=== PATIENT | male | born 1960 | race Caucasian/White ===

== ENCOUNTER → 2019-09-12 10:39 | Outpatient (BNVA) | payer SELFPAY | PROVIDERS: Family Provider Nurse Practitioner; PCP Nurse Practitioner; Visit Provider Nurse Practitioner | DX: E11.65 Type 2 diabetes mellitus with hyperglycemia (principal); I10 Essential (primary) hypertension; K21.9 Gastro-esophageal reflux disease without esophagitis | CPT/HCPCS: 80053; 80061; 81003; 82044; 83036 ==

== ENCOUNTER → 2020-02-09 11:47 | Outpatient (BNVA) | payer SELFPAY | PROVIDERS: Family Provider Nurse Practitioner; PCP Nurse Practitioner; Visit Provider Family Medicine | DX: E11.65 Type 2 diabetes mellitus with hyperglycemia (principal); M54.9 Dorsalgia, unspecified; G89.29 Other chronic pain; I10 Essential (primary) hypertension | CPT/HCPCS: 80053; 80061; 83036 ==

== ENCOUNTER → 2020-06-01 12:01 | Outpatient (BNVA) | payer SELFPAY | PROVIDERS: Family Provider Nurse Practitioner; PCP Nurse Practitioner; Visit Provider Family Medicine | DX: I10 Essential (primary) hypertension (principal); E11.65 Type 2 diabetes mellitus with hyperglycemia; F41.9 Anxiety disorder, unspecified; K21.9 Gastro-esophageal reflux disease without esophagitis; M54.9 Dorsalgia, unspecified; G89.29 Other chronic pain | CPT/HCPCS: 80053; 80061; 83036; 85025 ==

== ENCOUNTER → 2020-11-27 12:57 | Outpatient (BNVA) | payer MEDICARE, SELFPAY | PROVIDERS: Family Provider Nurse Practitioner; PCP Nurse Practitioner; Visit Provider Family Medicine | DX: F41.9 Anxiety disorder, unspecified (principal); K21.9 Gastro-esophageal reflux disease without esophagitis; E11.65 Type 2 diabetes mellitus with hyperglycemia; I10 Essential (primary) hypertension | CPT/HCPCS: 80053; 80061; 83036; 84443; 85025 ==

== ENCOUNTER → 2021-04-26 09:42 | Outpatient (BNVA) | payer MEDICARE, SELFPAY | PROVIDERS: Family Provider Nurse Practitioner; PCP Nurse Practitioner; Visit Provider Family Medicine | DX: E11.65 Type 2 diabetes mellitus with hyperglycemia (principal); I10 Essential (primary) hypertension; F41.9 Anxiety disorder, unspecified | CPT/HCPCS: 80053; 80061; 83036; 84443; 85025 ==

== ENCOUNTER → 2022-03-11 17:00 | Outpatient (BNVA) | payer MEDICARE, SELFPAY | PROVIDERS: Family Provider Nurse Practitioner; PCP Nurse Practitioner; Visit Provider Family Medicine | DX: L98.9 Disorder of the skin and subcutaneous tissue, unspecified (principal); G47.30 Sleep apnea, unspecified; E11.65 Type 2 diabetes mellitus with hyperglycemia; I10 Essential (primary) hypertension; K21.9 Gastro-esophageal reflux disease without esophagitis; F41.9 Anxiety disorder, unspecified; Z12.5 Encounter for screening for malignant neoplasm of prostate | CPT/HCPCS: 80053; 80061; 83036; 84443; 85025; G0103 ==

== ENCOUNTER → 2022-03-21 09:55 | Outpatient (BNVA) | payer MEDICARE, SELFPAY | PROVIDERS: Family Provider Nurse Practitioner; PCP Nurse Practitioner; Visit Provider Family Medicine | DX: R74.8 Abnormal levels of other serum enzymes (principal); R79.89 Other specified abnormal findings of blood chemistry; R94.6 Abnormal results of thyroid function studies; E03.8 Other specified hypothyroidism | CPT/HCPCS: 80076; 84439; 84443; 84481 ==

== ENCOUNTER → 2022-03-27 09:46 | Outpatient (BNVA) | payer MEDICARE, SELFPAY | PROVIDERS: Family Provider Nurse Practitioner; PCP Nurse Practitioner; Visit Provider Family Medicine | DX: R74.8 Abnormal levels of other serum enzymes (principal) | CPT/HCPCS: 86705; 86706; 86709; 86803; 87340 ==

== ENCOUNTER 2022-05-19 09:34 | Outpatient (CLI) | payer MEDICARE, SELFPAY ==
--- NOTE | 2022-05-19 | US_ITS ---
WS: [id number] RIGHT UPPER QUADRANT ULTRASOUND HISTORY: ELEVATED LFT's COMPARISON: None available. Liver: 15.2 cm in length. Normal size liver. Coarsened echotexture. Surface of the liver is very slig htly irregular. No mass or bile duct dilatation. Portal Vein: Normal hepatopetal flow with monophasic waveform. Gallbladder: Normally distended gallbladder. Nonshadowing, nonmobile soft tissue focus within the gal lbladder measures 5.7 mm. CBD: 0.3 cm Pancreas: Very difficult to visualize due to body habitus. Head and tail are obscured. Body is negati ve. Right kidney: 10.4 cm in length. Normal size and echogenicity. No hydronephrosis or mass. Aorta and IVC: Unremarkable abdominal aorta and IVC. No ascites. US/US liver [id number] IMPRESSION: 1. No cholelithiasis. 2. Gallbladder polyp. 3. Mild hepatic steatosis versus cirrhosis.
== END 2022-05-19 09:35 | disposition home or self-care (01) ==
PROVIDERS: PCP Family Medicine; Visit Provider Family Medicine
DX: R94.5 Abnormal results of liver function studies (principal); K82.4 Cholesterolosis of gallbladder
CPT/HCPCS: 76705

== ENCOUNTER → 2022-08-19 08:36 | Outpatient (BNVA) | payer MEDICARE, SELFPAY | PROVIDERS: PCP Family Medicine; Visit Provider Surgery | DX: K82.4 Cholesterolosis of gallbladder (principal) | CPT/HCPCS: 99203 ==

== ENCOUNTER → 2022-10-21 12:04 | Outpatient (BNVA) | payer MEDICARE, SELFPAY | PROVIDERS: PCP Family Medicine; Visit Provider Family Medicine | DX: E11.65 Type 2 diabetes mellitus with hyperglycemia (principal); I10 Essential (primary) hypertension; K21.9 Gastro-esophageal reflux disease without esophagitis; F41.9 Anxiety disorder, unspecified; Z12.5 Encounter for screening for malignant neoplasm of prostate; G47.30 Sleep apnea, unspecified | CPT/HCPCS: 80053; 80061; 83036; 84443; G0103 ==

== ENCOUNTER → 2023-04-27 11:54 | Outpatient (BNVA) | payer MEDICARE, SELFPAY | PROVIDERS: PCP Family Medicine; Visit Provider Family Medicine | DX: K82.4 Cholesterolosis of gallbladder (principal); F41.9 Anxiety disorder, unspecified; I10 Essential (primary) hypertension; K21.9 Gastro-esophageal reflux disease without esophagitis; E11.65 Type 2 diabetes mellitus with hyperglycemia; M25.561 Pain in right knee | CPT/HCPCS: 80053; 80061; 83036; 84443; 85025 ==

== ENCOUNTER 2023-05-18 07:47 | Outpatient (CLI) | payer MEDICARE, SELFPAY ==
--- NOTE | 2023-05-18 08:15 | US_ITS ---
WS: [id number] ULTRASOUND ABDOMEN LIMITED CLINICAL INFORMATION: K82.4 - Cholesterolosis of gallbladder COMPARISON: 2021 FINDINGS: Liver Size: Mild hepatomegaly Craniocaudal length: 15.8 cm. Echogenicity: Coarse surface nodularity: None. Mass (size and location): None. Bile ducts Intrahepatic ducts: Normal. Common bile duct diameter: 0.3 cm. Gallbladder Gallbladder polyp measuring 11 x 8.5 x 4.3 mm Gallstones: None. Gallbladder sludge: None. Gallbladder wall thickening: None. Pericholecystic fluid: None. Sonographic Medina sign: Absent. Pancreas Not well visualized Right kidney: Normal. Hydronephrosis: None. Size: 10.3 cm x 5.1 cm x 4.9 cm. Abdominal aorta and IVC Visualized portions are normal. Ascites: None. IMPRESSION: 1. Mild hepatomegaly with coarse hepatic echogenicity. 2. Gallbladder polyp measuring 11 x 8.5 x 4.3 mm appears slightly more prominent and better visualiz ed today. 3. No gallbladder wall thickening pericholecystic fluid. 4. Normal common bile duct. 5. No hydronephrosis in the RIGHT kidney.
== END 2023-05-18 07:48 | disposition home or self-care (01) ==
PROVIDERS: PCP Family Medicine; Visit Provider Family Medicine
DX: K82.4 Cholesterolosis of gallbladder (principal); R16.0 Hepatomegaly, not elsewhere classified
CPT/HCPCS: 76705

== ENCOUNTER → 2023-09-10 12:27 | Outpatient (BNVA) | payer MEDICARE, SELFPAY | PROVIDERS: PCP Family Medicine; Referring Provider Family Medicine; Visit Provider Surgery | DX: K82.4 Cholesterolosis of gallbladder (principal); K21.9 Gastro-esophageal reflux disease without esophagitis | CPT/HCPCS: 99214 ==

== ENCOUNTER 2023-09-30 10:52 | Day surgery (SDC) | payer MEDICARE, SELFPAY ==
--- NOTE | 2023-09-30 11:32 | ANES.PREANE2 ---
Pre-Anesthetic Assessment Height/Weight: Height 1.8 m Preop Diagnosis: gerd Operation Date: 09/30/23 12:00 Proposed Procedures p 33975 egd K21.9(Not Applicable) - Kalin Nunn DO Familial anesthetic complications: None Was Beta Herbert taken within 24 hours: Yes Was Clonidine taken within 24 hours: N/A Social occasional THC use and alcohol Exam alert, oriented x 3 and regular rate & rhythm Airway Mallampati: Class II Dentition: chipped History/ROS No significant history except as noted Pulmonary None reported CV/HEM Hypertension None reported Hepatic fatty liver GI Gastroesophageal Reflux Disease Metabolic Diabetes Mellitus [facility] Lower Back Pain Neuropsych Anxiety Anesthetic Plan ASA status: 3 Anesthesia: Anesthesia Evaluation and MAC Risk of > 500 ml blood loss (7ml/kg in children): No Medications/Allergies Home Medications Medication Instructions Recorded Confirmed Last Taken Type Face mask and hose for sleep apnea #1 ea 03/11/22 09/28/23 09/28/23 Rx machine knee brace #1 ea 04/27/23 09/28/23 09/28/23 Rx pantoprazole 40 mg tablet,delayed 40 mg PO BID 6 weeks #84 tabs 09/10/23 09/30/23 09/29/23 Rx release (Protonix) amlodipine 10 mg tablet 10 mg PO BEDTIME 09/28/23 09/30/23 09/29/23 History clonazepam 1 mg tablet 1 mg PO BID PRN anxiety 09/28/23 09/30/23 09/29/23 History propranolol 80 mg capsule,24 80 mg PO BEDTIME 09/28/23 09/30/23 09/29/23 History hr,extended release sitagliptin phosphate 100 mg 100 mg PO BEDTIME 09/28/23 09/30/23 09/29/23 History tablet (Januvia) Allergies Allergy/AdvReac Type Severity Reaction Status Date / Time aspirin [From Norgesic] AdvReac Nausea Verified 09/30/23 11:31 caffeine [From Norgesic] AdvReac Nausea Verified 09/30/23 11:31 orphenadrine [From Norgesic] AdvReac Nausea Verified 09/30/23 11:31 piroxicam [From Feldene] AdvReac Nausea Verified 09/30/23 11:31 [facility] Anesthesia Medical History (Updated 09/10/23 @ 13:41 by Kalin Nunn DO) Acid reflux Controlled diabetes mellitus with hyperglycemia Hypertension Surgical History Hx of colonoscopy (~03/24/18) Hx of umbilical hernia repair (~03/26/18) Hx of appendectomy (~1970) Family History Mother Hypertension Diabetes Father Hypertension Heart disease Denies family history of Clotting disorder Social History Smoking and tobacco/nicotine status: never used tobacco/nicotine Alcohol intake: never Adopted: No Lives independently: Yes Household members: none Housing: House Marital status: Number of children: 2 Number of grandchildren: 2 Highest education level completed: High School Graduate service: No Current occupational status: retired Current gender identity: Male Data Anesthesia Cardiac Studies: No Data to Display
[2023-09-30] MEDS: sodium chloride 0.9% 1,000 ML 30 ML IV (11:34)
[2023-09-30 11:36] VITALS: BP 152/103; PULSE 66; RESP 16; TEMP 36.6; O2SAT 97; BMI 25.7
[2023-09-30] MEDS: midazolam 1 mg/mL INJ 2 mL 2 MG IVP (11:48)
[2023-09-30 11:53] LABS: Glucose Point of Care 111 mg/dL (70-110)
--- NOTE | 2023-09-30 12:19 | W.PM.OPSUD ---
Surgery/Procedure H&P Update DATE OF PROCEDURE: September 30, 2023 DATE H&P PERFORMED: 09/10/23 H&P UPDATE INFORMATION: I have reviewed H&P completed within last 30 days, I have examined patient prior to procedure and No changes to prior documentation PREOP DIAGNOSIS: gerd PLANNED PROCEDURE: Operation Date: 09/30/23 12:00 Proposed Procedures p [id number] egd K21.9(Not Applicable) - Kalin Nunn, DO
[2023-09-30 12:30] VITALS: BP 132/81; PULSE 75; RESP 18; TEMP 36.6; O2SAT 95
[2023-09-30 12:45] VITALS: BP 136/86; PULSE 69; RESP 18; O2SAT 95
--- NOTE | 2023-09-30 15:27 | ANE.PACU2 ---
Inpatient post-anesthesia follow up: Airway intact: Yes Vital signs: Temperature 97.9 F Pulse Rate 69 Respiratory Rate 18 Blood Pressure 136/86 Pulse Oximetry 95 Oxygen Delivery Me thod Room Air Oxygen Flow Rate 2 Fraction of Inspir ed Oxygen Hydration adequate: Yes Nausea and vomiting: No Pain level: 2 Mental status: Baseline
== END 2023-09-30 12:57 | disposition home or self-care (01) ==
PROVIDERS: PCP Family Medicine; Visit Provider Surgery
PROC: 0DJ08ZZ Inspection of Upper Intestinal Tract, Via Natural or Artificial Opening Endoscopic (ICD-10-PCS; CPT 43235; principal; 2023-09-30 12:00)
DX: K21.9 Gastro-esophageal reflux disease without esophagitis (principal); K29.50 Unspecified chronic gastritis without bleeding; I10 Essential (primary) hypertension; F41.9 Anxiety disorder, unspecified; E11.65 Type 2 diabetes mellitus with hyperglycemia
CPT/HCPCS: 36416; 43239; 82962; 88305; 88342; 96374; J2250; J2704; J7030

== ENCOUNTER → 2023-10-13 05:35 | Day surgery (SDC) | payer MEDICARE, SELFPAY ==
[2023-10-13] VITALS (11 sets, daily range): BP systolic 124–157; BP diastolic 84–98; PULSE 61–74; RESP 16–18; TEMP 36.3–36.7; O2SAT 94–97; BMI 25.7
[2023-10-13] MEDS: sodium chloride 0.9% 1,000 ML 30 ML IV (06:34)
[2023-10-13] MEDS: midazolam 1 mg/mL INJ 2 mL 2 MG IVP (06:43)
--- NOTE | 2023-10-13 06:46 | ANES.PREANE2 ---
Pre-Anesthetic Assessment Height/Weight: Height 1.8 m Weight 83.461 kg Temp Pulse Resp BP Pulse Ox O2 Del Method 97.5 F L 61 17 124/84 97 Room Air 10/13/23 06:01 10/13/23 06:01 10/13/23 06:01 10/13/23 06:01 10/13/23 06:01 10/13/23 06:06 Operation Date: 10/13/23 07:00 Proposed Procedures p [id number] lap reji K82.4(Not Applicable) - Kalin Nunn DO Familial anesthetic complications: None Was Beta Herbert taken within 24 hours: Yes Was Clonidine taken within 24 hours: N/A Last intake: Intake Last Liquid Date 10/13/23 Last Liquid Time 12:22 Last Solid Date 10/12/23 Last Solid Time 11:30 Social No alcohol and No tobacco Exam alert, oriented x 3, clear to auscultation bilaterally and regular rate & rhythm Airway Mallampati: Class II Dentition: chipped CV/HEM Hypertension GI Gastroesophageal Reflux Disease Metabolic Diabetes Mellitus Neuropsych Headache (migraines with aura including blurred vision and numbness, son present states this is normal for patient and that he also has these same migraines ( it runs in our family )) Anesthetic Plan ASA status: 3 Anesthesia: General Risk of > 500 ml blood loss (7ml/kg in children): No Medications/Allergies Home Medications Medication Instructions Recorded Confirmed Last Taken Type Face mask and hose for sleep apnea #1 ea 03/11/22 09/28/23 09/28/23 Rx machine knee brace #1 ea 04/27/23 09/28/23 09/28/23 Rx pantoprazole 40 mg tablet,delayed 40 mg PO BID 6 weeks #84 tabs 09/10/23 10/12/23 10/12/23 Rx release (Protonix) amlodipine 10 mg tablet 10 mg PO BEDTIME 09/28/23 10/12/23 10/12/23 History propranolol 80 mg capsule,24 80 mg PO BEDTIME 09/28/23 10/12/23 10/12/23 History hr,extended release sitagliptin phosphate 100 mg 100 mg PO BEDTIME 09/28/23 10/12/23 10/11/23 History tablet (Januvia) clonazepam 1 mg tablet 1 mg PO BID PRN anxiety #60 tabs 10/06/23 10/12/23 10/13/23 Rx Allergies Allergy/AdvReac Type Severity Reaction Status Date / Time aspirin [From Norgesic] AdvReac Nausea Verified 09/30/23 11:31 caffeine [From Norgesic] AdvReac Nausea Verified 09/30/23 11:31 orphenadrine [From Norgesic] AdvReac Nausea Verified 09/30/23 11:31 piroxicam [From Feldene] AdvReac Nausea Verified 09/30/23 11:31 Current Medications Generic Name Dose Route Start Last Admin Trade Name Freq PRN Reason Stop Dose Admin Sodium Chloride 1,000 mls @ 30 mls/hr 10/13/23 06:00 10/13/23 06:34 Sodium Chloride 0.9% IV 10/14/23 05:59 30 mls/hr .Q24H MONICA Administration Midazolam HCl 2 mg 10/13/23 05:50 10/13/23 06:43 Midazolam 1 Mg/Ml Inj 2 Ml IVP 2 mg Q5M PRN Administration Preop Anxiety PFSH Anesthesia Medical History (Updated 09/10/23 @ 13:41 by Kalin Nunn DO) Acid reflux Controlled diabetes mellitus with hyperglycemia Hypertension Surgical History Hx of colonoscopy (~03/24/18) Hx of umbilical hernia repair (~03/26/18) Hx of appendectomy (~1970) Family History Mother Hypertension Diabetes Father Hypertension Heart disease Denies family history of Clotting disorder Social History Smoking and tobacco/nicotine status: never used tobacco/nicotine Alcohol intake: never Adopted: No Lives independently: Yes Household members: none Housing: House Marital status: Number of children: 2 Number of grandchildren: 2 Highest education level completed: High School Graduate service: No Current occupational status: retired Current gender identity: Male Data Anesthesia Cardiac Studies: No Data to Display
[2023-10-13] MEDS: ceFAZolin 2,000 MG in sodium chloride 0.9% (plus) 50 ML 100 MG IV (06:59)
--- NOTE | 2023-10-13 06:59 | P.HP_ITS ---
Providers/Chief Complaint Primary Care Provider: Amy Sanz MD Chief Complaint: K82.4 History of Present Illness Marysol Heller is a 63 year old male Review of Systems General: Reports: 10 or more systems reviewed and unremarkable except in HPI and below Medications/Allergies Home Medications Medication Instructions Recorded Confirmed Last Taken Type Face mask and hose for sleep apnea #1 ea 03/11/22 09/28/23 09/28/23 Rx machine knee brace #1 ea 04/27/23 09/28/23 09/28/23 Rx pantoprazole 40 mg tablet,delayed 40 mg PO BID 6 weeks #84 tabs 09/10/23 10/12/23 10/12/23 Rx release (Protonix) amlodipine 10 mg tablet 10 mg PO BEDTIME 09/28/23 10/12/23 10/12/23 History propranolol 80 mg capsule,24 80 mg PO BEDTIME 09/28/23 10/12/23 10/12/23 History hr,extended release sitagliptin phosphate 100 mg 100 mg PO BEDTIME 09/28/23 10/12/23 10/11/23 Hist ory tablet (Januvia) clonazepam 1 mg tablet 1 mg PO BID PRN anxiety #60 tabs 10/06/23 10/12/23 10/13/23 Rx Allergies Allergy/AdvReac Type Severity Reaction Status Date / Time aspirin [From Norgesic] AdvReac Nausea Verified 09/30/23 11:31 caffeine [From Norgesic] AdvReac Nausea Verified 09/30/23 11:31 orphenadrine [From Norgesic] AdvReac Nausea Verified 09/30/23 11:31 piroxicam [From Feldene] AdvReac Nausea Verified 09/30/23 11:31 PFSH Acute PFSH: Medical History (Updated 09/10/23 @ 13:41 by Kalin Nunn DO) Acid reflux Controlled diabetes mellitus with hyperglycemia Hypertension Surgical History Hx of colonoscopy (~03/24/18) Hx of umbilical hernia repair (~03/26/18) Hx of appendectomy (~1970) Family History Mother Hypertension Diabetes Father Hypertension Heart disease Denies family history of Clotting disorder Social History Smoking and tobacco/nicotine status: never used tobacco/nicotine Alcohol intake: never Adopted: No Lives independently: Yes Household members: none Housing: House Marital status: Number of children: 2 Number of grandchildren: 2 Highest education level completed: High School Graduate service: No Current occupational status: retired Current gender identity: Male Vitals/I&O/Wt Last Vital Signs Temp 97.5 F L 10/13/23 06:01 Pulse 61 10/13/23 06:01 Resp 17 10/13/23 06:01 BP 124/84 10/13/23 06:01 Pulse Ox 97 10/13/23 06:01 O2 Del Method Room Air 10/13/23 06:06 Weight last 48 hrs Weight 184 lb A&P Assessment and plan (1) Gallbladder polyp: Plan Laparoscopic cholecystectomy Attestations Medical Necessity Statement*: Home Coding Level of Care Code Acute Code for Chg Fwd Diagnoses Gallbladder polyp K82.4
[2023-10-13] MEDS: lidocaine-epi 2% PF 1:200,000 20 mL SDV XX (07:28)
--- NOTE | 2023-10-13 07:36 | P.OP_ITS ---
Operative Report Date of procedure: October 13, 2023 Surgeon: Kalin Nunn DO Brief History: This very pleasant 63-year-old gentleman with a gallbladder polyp that measures 11 mm on ultrasound. Due to its malignant potential, cholecystectomy is indicated. The risk and benefits were explained and documented. Procedure: Preoperative diagnosis: 11 mm gallbladder polyp Postoperative diagnosis: Same Procedure performed: Laparoscopic cholecystectomy Surgeon: Dr. Kalin Nunn DO Estimated blood loss: 5 mL Specimens: Gallbladder to pathology Complications: None apparent Description of procedure: Patient was wheeled into the operative room and placed on the OR table in a supine position. Abdomen was inspected prepped and draped in usual sterile fashion. Time-out was performed and all present were in agreement. A 15 blade scalp was used to make a stab incision in the left upper quadrant and intra- abdominal insufflation was achieved using a Veress needle. After localizing the tissue incisions were made and a 5 millimeter trocar was placed into the umbilicus as well as 2 in the right upper quadrant. A 12 millimeter trocar was placed in the epigastrium. Gallbladder was grasped and elevated. The triangle of Calot was carefully dissected using blunt dissection and electrocautery until the triangle of Calot clearly identified. The cystic duct was clipped pro ximally and double clipped distally. The duct was then ligated proximally. The cystic artery was doubly clipped and ligated. The gallbladder was then removed from the liver bed using electrocautery. The gallbladder was removed from the abdomen using an Endo-Catch bag through the epigastric incision. The liver bed was inspected and no bleeding was seen. The abdomen was irrigated and suctioned. All ports removed. Skin was washed and dried. Incisions were closed with 4-0 Monocryl in a subcuticular interrupted fashion. Skin glue was applied. Patient tolerated the procedure well.
[2023-10-13] MEDS: fentaNYL 50 mcg/mL INJ 2mL IVP (08:00)
[2023-10-13] MEDS: HYDROcodone-acetaminophen 7.5-325 mg Tablet 1 TAB PO (08:48)
[2023-10-13] MEDS: ondansetron 2 mg/ML SDV 2 mL 4 MG IVP (09:09)
[2023-10-14 12:09] LABS: Glucose Point of Care 109 mg/dL (70-110)
== END | disposition home or self-care (01) ==
PROVIDERS: PCP Family Medicine; Visit Provider Surgery
PROC: 0FT44ZZ Resection of Gallbladder, Percutaneous Endoscopic Approach (ICD-10-PCS; CPT 47562; principal; 2023-10-13 07:00)
DX: K80.10 Calculus of gallbladder with chronic cholecystitis without obstruction (principal); K42.9 Umbilical hernia without obstruction or gangrene; I10 Essential (primary) hypertension; K21.9 Gastro-esophageal reflux disease without esophagitis; E11.65 Type 2 diabetes mellitus with hyperglycemia
CPT/HCPCS: 47562; 36416; 82962; 88304; J0690; J2250; J2405; J2704; J3010; J3490; J7030

== ENCOUNTER → 2023-10-29 07:45 | Outpatient (BNVA) | payer MEDICARE, SELFPAY | PROVIDERS: PCP Family Medicine; Visit Provider Surgery | DX: K21.9 Gastro-esophageal reflux disease without esophagitis (principal); Z90.49 Acquired absence of other specified parts of digestive tract | CPT/HCPCS: 99214 ==

== ENCOUNTER → 2024-02-08 17:00 | Outpatient (BNVA) | payer MEDICARE, SELFPAY | PROVIDERS: PCP Family Medicine; Visit Provider Family Medicine | DX: Z12.5 Encounter for screening for malignant neoplasm of prostate (principal); G47.30 Sleep apnea, unspecified; F41.9 Anxiety disorder, unspecified; I10 Essential (primary) hypertension; E11.65 Type 2 diabetes mellitus with hyperglycemia | CPT/HCPCS: 80053; 80061; 83036; 84443; 85025; G0103 ==